=== PATIENT | male | born 1975 | race Caucasian/White ===

== ENCOUNTER 2021-03-20 18:56 | Emergency (ER) | payer OTHER ==
[2021-03-20 19:07] VITALS: BP 141/84; PULSE 69; TEMP 98.7; BMI 33.0
== END 2021-03-20 21:00 | disposition home or self-care (01) ==
LOC: JERFT 18:56
DX: M25.561 Pain in right knee (principal)
CPT/HCPCS: 73562-TC-RT-FY; 99283-25

== ENCOUNTER 2023-01-15 19:54 | Emergency (ER) | payer OTHER ==
[2023-01-15 19:58] VITALS: BP 119/80; PULSE 84; RESP 17; TEMP 97.6; BMI 30.8
[2023-01-15] MEDS ORDERED: DEXAMETHASONE SOD PHOSPHATE 10 MG/1 ML VIAL IM ONE (20:37)
[2023-01-15] MEDS ORDERED: KETOROLAC TROMETHAMINE 30 MG/1 ML VIAL IM ONE (20:37)
[2023-01-15] MEDS ORDERED: LIDOCAINE 5% TOPICAL PATCH TP ONE (20:38)
[2023-01-15] MEDS ORDERED: KETOROLAC TROMETHAMINE 30 MG/1 ML VIAL ONE (20:42)
[2023-01-15] MEDS ORDERED: LIDOCAINE 5% TOPICAL PATCH ONE (20:42)
[2023-01-15] MEDS ORDERED: DEXAMETHASONE SOD PHOSPHATE 10 MG/1 ML VIAL ONE (20:42)
== END 2023-01-15 21:54 | disposition home or self-care (01) ==
LOC: JERFT 19:54
PROC: 3E0233Z Introduction of Anti-inflammatory into Muscle, Percutaneous Approach (ICD-10-PCS; principal; 2023-01-15)
PROC: 3E023GC Introduction of Other Therapeutic Substance into Muscle, Percutaneous Approach (ICD-10-PCS; 2023-01-15)
DX: M54.50 Low back pain, unspecified (principal); S39.012A Strain of muscle, fascia and tendon of lower back, initial encounter; X50.0XXA Overexertion from strenuous movement or load, initial encounter; Y99.0 Civilian activity done for income or pay
CPT/HCPCS: 99284-25; J1100